=== PATIENT | female | born 1960 | race Caucasian/White ===

== ENCOUNTER 2022-07-05 19:00 | Observation (INO) | payer OTHER ==
[2022-07-05 19:30] VITALS: BMI 28.1
[2022-07-05 21:20] LABS: BASO % 1.2 % (0-2.0); EOS % 2.8 % (0-4.5); HEMOGLOBIN 13.9 GM/dL (10.7-15.3); LYMPH % 32.2 % (8-40); MCH 31.6 pg (25.7-33.7); MCHC 33.9 g/dl (32.0-36.0); MEAN CELL VOLUME 93.1 fl (80-96); MEAN PLT VOLUME 8.4 fl (7.5-11.1); MONO % 5.9 % (3.8-10.2); NEUT % 57.9 % (42.8-82.8); PLATELET COUNT 382 10^3/uL (134-434); RDW 13.7 % (11.6-15.6); WHITE BLOOD COUNT 12.5 K/mm3 (4.0-10.0)
[2022-07-05 21:27] LABS: INR 1.06 (0.83-1.09); PROTHROMBIN TIME (PATIENT) 12.3 SEC (9.7-13.0)
[2022-07-05 21:44] LABS: CALCIUM 9.4 mg/dL (8.5-10.1)
[2022-07-05 21:45] LABS: ALBUMIN 4.1 g/dl (3.4-5.0); BLOOD UREA NITROGEN 11.4 mg/dL (7-18)
[2022-07-05 21:48] LABS: CREATININE 0.6 mg/dL (0.55-1.3)
[2022-07-05 21:49] LABS: BILIRUBIN,TOTAL 0.3 mg/dL (0.2-1); TOT PROT 8.1 g/dl (6.4-8.2)
[2022-07-05 22:13] LABS: EPI CELLS 12 /uL (0-25.1); HYALINE CASTS 1 /uL (0-3.1); PH,URINE 6.5 (5.0-8.0); URINE APPEARANCE CLEAR; URINE BACTERIA 92 /uL (0-1359); URINE BILIRUBIN NEGATIVE (NEGATIVE); URINE COLOR YELLOW; URINE GLUCOSE (UA) NEGATIVE (NEGATIVE); URINE KETONE NEGATIVE (NEGATIVE); URINE LEUK ESTERASE TRACE (NEGATIVE); URINE NITRITE NEGATIVE (NEGATIVE); URINE PROTEIN 1+ (NEGATIVE); URINE RBC 85 /uL (0-23.9); URINE UROBILINOGEN 0.2 mg/dL (0.2-1.0); URINE WBC 79 /uL (0-25.8)
[2022-07-06] MEDS ORDERED: CEFTRIAXONE 1 GM in DEXTROSE 5%-WATER - 50 ML IVPB ONE (01:47)
[2022-07-06] MEDS ORDERED: CEFTRIAXONE 1 GM/50 ML BAG ONE (01:59)
[2022-07-06] MEDS: SODIUM CHLORIDE 1,000 ML IV SCH ×2 (02:06→07:46)
[2022-07-06] MEDS: POLYETHYLENE GLYCOL (HEALTHYLAX) 3350 17 GM PACKET PO SCH ×3 (06:00→22:02)
[2022-07-06] MEDS ORDERED: MAGNESIUM SULF 50% (8.12 MEQ/2 ML-1 GM VIAL) IVPB ONE ×2 (11:30→11:45)
[2022-07-06 12:00] LABS: HEMATOCRIT 37.4 % (32.4-45.2); MCH 32.3 pg (25.7-33.7); MCHC 34.8 g/dl (32.0-36.0); MEAN CELL VOLUME 92.7 fl (80-96); MEAN PLT VOLUME 8.1 fl (7.5-11.1); PLATELET COUNT 370 10^3/uL (134-434); RBC 4.04 M/mm3 (3.60-5.2); RDW 13.7 % (11.6-15.6); WHITE BLOOD COUNT 12.9 K/mm3 (4.0-10.0)
[2022-07-06 12:24] LABS: BLOOD UREA NITROGEN 10.4 mg/dL (7-18); CALCIUM 8.7 mg/dL (8.5-10.1); MAGNESIUM 2.2 mg/dL (1.8-2.4)
[2022-07-06 12:25] LABS: ALBUMIN 3.6 g/dl (3.4-5.0)
[2022-07-06 12:27] LABS: CREATININE 0.5 mg/dL (0.55-1.3)
[2022-07-06 12:29] LABS: BILIRUBIN,TOTAL 0.4 mg/dL (0.2-1); TOT PROT 7.2 g/dl (6.4-8.2)
[2022-07-06 12:30] LABS: PHOSPHOROUS 3.6 mg/dL (2.5-4.9)
[2022-07-06 23:38] VITALS: TEMP 98.2
[2022-07-07] MEDS: SODIUM CHLORIDE 1,000 ML IV SCH (01:55)
[2022-07-07] MEDS: POLYETHYLENE GLYCOL (HEALTHYLAX) 3350 17 GM PACKET PO SCH ×3 (05:26→16:14)
[2022-07-07 06:44] VITALS: BP 113/56; RESP 18
[2022-07-07 09:37] LABS: BASO % 0.8 % (0-2.0); EOS % 5.8 % (0-4.5); HEMOGLOBIN 13.4 GM/dL (10.7-15.3); LYMPH % 35.5 % (8-40); MCH 31.6 pg (25.7-33.7); MCHC 33.5 g/dl (32.0-36.0); MEAN CELL VOLUME 94.1 fl (80-96); MEAN PLT VOLUME 8.3 fl (7.5-11.1); MONO % 4.9 % (3.8-10.2); PLATELET COUNT 376 10^3/uL (134-434); RBC 4.25 M/mm3 (3.60-5.2); RDW 14.2 % (11.6-15.6); WHITE BLOOD COUNT 10.3 K/mm3 (4.0-10.0)
[2022-07-07] MEDS ORDERED: SOLIFENACIN SUCCINATE 5 MG TAB PO SCH (10:00)
[2022-07-07] MEDS ORDERED: CEFTRIAXONE 1 GM in DEXTROSE 5%-WATER - 50 ML IVPB SCH (10:00)
[2022-07-07 10:01] LABS: ALBUMIN 3.6 g/dl (3.4-5.0); BLOOD UREA NITROGEN 10.5 mg/dL (7-18)
[2022-07-07 10:02] LABS: CALCIUM 9.2 mg/dL (8.5-10.1); MAGNESIUM 2.4 mg/dL (1.8-2.4)
[2022-07-07 10:04] LABS: CREATININE 0.5 mg/dL (0.55-1.3); PHOSPHOROUS 3.7 mg/dL (2.5-4.9)
[2022-07-07 10:06] LABS: BILIRUBIN,TOTAL 0.6 mg/dL (0.2-1); TOT PROT 7.1 g/dl (6.4-8.2)
[2022-07-07] MEDS ORDERED: NICOTINE 7 MG/24 HOURS TOPICAL PATCH TD SCH (12:00)
[2022-07-07] MEDS ORDERED: LORATADINE 10 MG TABLET PO SCH (13:30)
[2022-07-07 16:17] VITALS: PULSE 67
== END 2022-07-07 17:30 | disposition home or self-care (01) ==
LOC: JER 19:00 → JERBED 07-06 01:36 → UNDOADMOB 07-06 01:36 → INTOOBSV 07-06 01:36 → JERBED 07-06 02:45 → J5S 07-06 02:45 → JERBED 07-07 13:16 → J5S 07-07 13:16
PROVIDERS: ADMIT Internal Medicine; ATTEND Internal Medicine
PROC: 3E03329 Introduction of Other Anti-infective into Peripheral Vein, Percutaneous Approach (ICD-10-PCS; principal; 2022-07-07)
PROC: 3E033GC Introduction of Other Therapeutic Substance into Peripheral Vein, Percutaneous Approach (ICD-10-PCS; 2022-07-07)
PROC: 3E0337Z Introduction of Electrolytic and Water Balance Substance into Peripheral Vein, Percutaneous Approach (ICD-10-PCS; 2022-07-07)
DX: N39.0 Urinary tract infection, site not specified (principal); R31.0 Gross hematuria; D49.4 Neoplasm of unspecified behavior of bladder; M48.00 Spinal stenosis, site unspecified; K59.09 Other constipation; F17.210 Nicotine dependence, cigarettes, uncomplicated; M54.40 Lumbago with sciatica, unspecified side
CPT/HCPCS: 36415; 74177-TC; 80053; 81003; 83036; 83735; 84100; 84439; 84443; 85025; 85027; 85610; 85730; 87086; 93005; 93010; 96361; 96365; 96375; 99285-25; C9803-CS; G0378; U0003; U0005

== ENCOUNTER 2022-07-17 08:02 | Inpatient (IN) | payer OTHER ==
[2022-07-17] MEDS ORDERED: ACETAMINOPHEN 1000 MG/100 ML BAG IVPB ONE (08:50)
[2022-07-17] MEDS ORDERED: SODIUM CHLORIDE 0.9% 500 ML INFUS.BAG IV ONE (08:50)
[2022-07-17] MEDS ORDERED: ACETAMINOPHEN INJECTION 100 ML IVPB ONE (09:34)
[2022-07-17 09:44] LABS: BASO % 0.8 % (0-2.0); EOS % 0.5 % (0-4.5); HEMATOCRIT 38.7 % (32.4-45.2); HEMOGLOBIN 13.3 GM/dL (10.7-15.3); LYMPH % 17.3 % (8-40); MCH 31.6 pg (25.7-33.7); MCHC 34.3 g/dl (32.0-36.0); MEAN PLT VOLUME 8.3 fl (7.5-11.1); MONO % 5.6 % (3.8-10.2); NEUT % 75.8 % (42.8-82.8); PLATELET COUNT 409 10^3/uL (134-434); RBC 4.21 M/mm3 (3.60-5.2); RDW 13.9 % (11.6-15.6); WHITE BLOOD COUNT 13.7 K/mm3 (4.0-10.0)
[2022-07-17 10:12] LABS: ALBUMIN 3.9 g/dl (3.4-5.0); CALCIUM 9.2 mg/dL (8.5-10.1)
[2022-07-17 10:17] LABS: BILIRUBIN,TOTAL 0.4 mg/dL (0.2-1); TOT PROT 7.6 g/dl (6.4-8.2)
[2022-07-17 10:37] LABS: BLOOD UREA NITROGEN 10.6 mg/dL (7-18); CREATININE 0.6 mg/dL (0.55-1.3)
[2022-07-17 11:24] LABS: EPI CELLS 14 /uL (0-25.1); HYALINE CASTS 6 /uL (0-3.1); PH,URINE 7.5 (5.0-8.0); URINE APPEARANCE TURBID; URINE BACTERIA 396 /uL (0-1359); URINE BILIRUBIN NEGATIVE (NEGATIVE); URINE COLOR YELLOW; URINE GLUCOSE (UA) NEGATIVE (NEGATIVE); URINE KETONE NEGATIVE (NEGATIVE); URINE LEUK ESTERASE 1+ (NEGATIVE); URINE NITRITE NEGATIVE (NEGATIVE); URINE PROTEIN 2+ (NEGATIVE); URINE RBC 128 /uL (0-23.9); URINE UROBILINOGEN 0.2 mg/dL (0.2-1.0); URINE WBC 456 /uL (0-25.8)
[2022-07-17] MEDS ORDERED: CEFTRIAXONE 1 GM/50 ML BAG ONE (11:35)
[2022-07-17] MEDS ORDERED: morphine CARPU-JECT 2 MG/1 ML DISP.SYRIN IVPUSH ONE (11:56)
[2022-07-17] MEDS ORDERED: morphine SULFATE 4 MG/ML VIAL ONE (17:02)
[2022-07-17] MEDS ORDERED: morphine CARPU-JECT 4 MG/1 ML DISP.SYRIN IVPUSH ONE (17:02)
[2022-07-17] MEDS ORDERED: OXYBUTYNIN CHLORIDE 5 MG TABLET PO ONE (17:16)
[2022-07-17] MEDS ORDERED: diazePAM CARPU-JECT 10 MG/2 ML DISP.SYRIN IVPUSH ONE (17:51)
[2022-07-17] MEDS ORDERED: DICYCLOMINE HCL 20 MG TABLET PO ONE (17:52)
[2022-07-17] MEDS ORDERED: diazePAM CARPU-JECT 10 MG/2 ML DISP.SYRIN ONE ×2 (17:57→20:51)
[2022-07-17] MEDS ORDERED: morphine CARPU-JECT 4 MG/1 ML DISP.SYRIN IVPUSH PRN (20:49)
[2022-07-17] MEDS ORDERED: DICYCLOMINE HCL 10 MG CAPSULE ONE (20:51)
[2022-07-17] MEDS ORDERED: SODIUM CHLORIDE 1,000 ML IV SCH (21:00)
[2022-07-17] MEDS ORDERED: ACETAMINOPHEN 1000 MG/100 ML BAG IVPB SCH (21:00)
[2022-07-17] MEDS ORDERED: CEFTRIAXONE 1 GM in DEXTROSE 5%-WATER - 50 ML IVPB SCH (21:15)
[2022-07-18 01:12] VITALS: BMI 28.5
[2022-07-18] MEDS ORDERED: SODIUM CHLORIDE 1,000 ML IV STA ×2 (06:37)
[2022-07-18] MEDS: SODIUM CHLORIDE 1,000 ML IV SCH ×2 (08:37→20:14)
[2022-07-18] MEDS: SOLIFENACIN SUCCINATE 5 MG TAB PO SCH (09:14)
[2022-07-18 10:04] LABS: BASO % 0.6 % (0-2.0); EOS % 3.8 % (0-4.5); HEMATOCRIT 36.6 % (32.4-45.2); HEMOGLOBIN 12.2 GM/dL (10.7-15.3); LYMPH % 27.3 % (8-40); MCH 31.5 pg (25.7-33.7); MCHC 33.4 g/dl (32.0-36.0); MEAN CELL VOLUME 94.5 fl (80-96); MEAN PLT VOLUME 8.8 fl (7.5-11.1); MONO % 5.8 % (3.8-10.2); NEUT % 62.5 % (42.8-82.8); PLATELET COUNT 365 10^3/uL (134-434); RBC 3.88 M/mm3 (3.60-5.2); WHITE BLOOD COUNT 11.8 K/mm3 (4.0-10.0)
[2022-07-18 10:20] LABS: BLOOD UREA NITROGEN 7.2 mg/dL (7-18)
[2022-07-18 10:22] LABS: CREATININE 0.4 mg/dL (0.55-1.3)
[2022-07-18 10:23] LABS: PHOSPHOROUS 3.2 mg/dL (2.5-4.9)
[2022-07-18 10:24] LABS: BILIRUBIN,TOTAL 0.4 mg/dL (0.2-1)
[2022-07-18 10:26] LABS: ALBUMIN 3.1 g/dl (3.4-5.0); CALCIUM 7.8 mg/dL (8.5-10.1); TOT PROT 5.4 g/dl (6.4-8.2)
[2022-07-18] MEDS: ACETAMINOPHEN 1000 MG/100 ML BAG IVPB PRN ×2 (11:40→19:58)
[2022-07-18] MEDS: POLYETHYLENE GLYCOL (HEALTHYLAX) 3350 17 GM PACKET PO PRN (11:45)
[2022-07-18] MEDS ORDERED: CEFTRIAXONE 1 GM in DEXTROSE 5%-WATER - 50 ML IVPB SCH (12:00)
[2022-07-18] MEDS ORDERED: ONDANSETRON 4 MG/2 ML VIAL IVPUSH PRN (13:58)
[2022-07-19] MEDS: SODIUM CHLORIDE 1,000 ML IV SCH ×2 (07:43→19:25)
[2022-07-19] MEDS ORDERED: MEROPENEM 1 GM in DEXTROSE 5%-WATER 100 ML IVPB SCH (10:00)
[2022-07-19 10:12] LABS: BASO % 0.6 % (0-2.0); EOS % 4.6 % (0-4.5); HEMATOCRIT 36.6 % (32.4-45.2); HEMOGLOBIN 12.4 GM/dL (10.7-15.3); LYMPH % 25.8 % (8-40); MCH 31.9 pg (25.7-33.7); MCHC 33.7 g/dl (32.0-36.0); MEAN CELL VOLUME 94.5 fl (80-96); MEAN PLT VOLUME 8.8 fl (7.5-11.1); MONO % 5.1 % (3.8-10.2); NEUT % 63.9 % (42.8-82.8); PLATELET COUNT 352 10^3/uL (134-434); RBC 3.88 M/mm3 (3.60-5.2); RDW 14.3 % (11.6-15.6); WHITE BLOOD COUNT 12.2 K/mm3 (4.0-10.0)
[2022-07-19] MEDS: SOLIFENACIN SUCCINATE 5 MG TAB PO SCH (10:17)
[2022-07-19 10:26] LABS: CALCIUM 8.2 mg/dL (8.5-10.1)
[2022-07-19 10:27] LABS: BLOOD UREA NITROGEN 5.2 mg/dL (7-18)
[2022-07-19 10:30] LABS: CREATININE 0.4 mg/dL (0.55-1.3)
[2022-07-19] MEDS ORDERED: BISACODYL 5 MG TABLET.DR (FP) PO ONE (14:53)
[2022-07-19] MEDS: ERTAPENEM SODIUM 1 GM in SODIUM CHLORIDE 50 ML IVPB SCH (15:35)
[2022-07-20 08:00] LABS: BLOOD UREA NITROGEN 7.4 mg/dL (7-18); CALCIUM 8.1 mg/dL (8.5-10.1)
[2022-07-20 08:04] LABS: CREATININE 0.5 mg/dL (0.55-1.3)
[2022-07-20 08:10] LABS: BASO % 0.5 % (0-2.0); EOS % 5.9 % (0-4.5); HEMATOCRIT 36.4 % (32.4-45.2); HEMOGLOBIN 12.3 GM/dL (10.7-15.3); LYMPH % 30.4 % (8-40); MCH 31.9 pg (25.7-33.7); MCHC 33.9 g/dl (32.0-36.0); MEAN CELL VOLUME 93.9 fl (80-96); MEAN PLT VOLUME 8.8 fl (7.5-11.1); MONO % 6.7 % (3.8-10.2); NEUT % 56.5 % (42.8-82.8); PLATELET COUNT 337 10^3/uL (134-434); RBC 3.87 M/mm3 (3.60-5.2); WHITE BLOOD COUNT 10.3 K/mm3 (4.0-10.0)
[2022-07-20] MEDS: SODIUM CHLORIDE 1,000 ML IV SCH ×2 (09:19→17:34)
[2022-07-20] MEDS ORDERED: MEROPENEM 1 GM in DEXTROSE 5%-WATER 100 ML IVPB SCH (10:00)
[2022-07-20] MEDS: ERTAPENEM SODIUM 1 GM in SODIUM CHLORIDE 50 ML IVPB SCH (10:34)
[2022-07-20] MEDS: SOLIFENACIN SUCCINATE 5 MG TAB PO SCH (10:40)
[2022-07-20] MEDS ORDERED: MINERAL OIL ENEMA 133 ML ENEMA RC ONE (14:29)
[2022-07-21] MEDS: SODIUM CHLORIDE 1,000 ML IV SCH ×2 (03:27→14:34)
[2022-07-21] MEDS: ERTAPENEM SODIUM 1 GM in SODIUM CHLORIDE 50 ML IVPB SCH (09:21)
[2022-07-21] MEDS: SOLIFENACIN SUCCINATE 5 MG TAB PO SCH (09:21)
[2022-07-21] MEDS: POLYETHYLENE GLYCOL (HEALTHYLAX) 3350 17 GM PACKET PO PRN (09:45)
[2022-07-21] MEDS ORDERED: POLYETHYLENE GLYCOL (HEALTHYLAX) 3350 17 GM PACKET PO ONE (11:45)
[2022-07-22] MEDS ORDERED: HYDROCORTISONE 1% TOPICAL CREAM 30 GM TUBE TP PRN (01:15)
[2022-07-22 08:54] LABS: BASO % 0.5 % (0-2.0); EOS % 5.9 % (0-4.5); HEMATOCRIT 39.6 % (32.4-45.2); HEMOGLOBIN 13.3 GM/dL (10.7-15.3); LYMPH % 34.5 % (8-40); MCH 31.5 pg (25.7-33.7); MCHC 33.6 g/dl (32.0-36.0); MEAN CELL VOLUME 93.7 fl (80-96); MEAN PLT VOLUME 8.7 fl (7.5-11.1); MONO % 5.4 % (3.8-10.2); NEUT % 53.7 % (42.8-82.8); PLATELET COUNT 378 10^3/uL (134-434); RBC 4.23 M/mm3 (3.60-5.2); RDW 14.1 % (11.6-15.6)
[2022-07-22 09:17] LABS: CALCIUM 8.9 mg/dL (8.5-10.1)
[2022-07-22 09:18] LABS: BLOOD UREA NITROGEN 6.5 mg/dL (7-18)
[2022-07-22 09:21] LABS: CREATININE 0.5 mg/dL (0.55-1.3)
[2022-07-22] MEDS: SOLIFENACIN SUCCINATE 5 MG TAB PO SCH (09:47)
[2022-07-22] MEDS: ERTAPENEM SODIUM 1 GM in SODIUM CHLORIDE 50 ML IVPB SCH (09:48)
[2022-07-22] MEDS: SODIUM CHLORIDE 1,000 ML IV SCH ×2 (16:56→23:02)
[2022-07-22] MEDS: HEPARIN NA (PORCINE) 5,000 UNITS/ML 1ML VIAL SQ SCH ×2 (17:06→21:05)
[2022-07-23] MEDS: SODIUM CHLORIDE 1,000 ML IV SCH (06:33)
[2022-07-23] MEDS: SOLIFENACIN SUCCINATE 5 MG TAB PO SCH (09:11)
[2022-07-23] MEDS: ERTAPENEM SODIUM 1 GM in SODIUM CHLORIDE 50 ML IVPB SCH (09:11)
[2022-07-23] MEDS: HEPARIN NA (PORCINE) 5,000 UNITS/ML 1ML VIAL SQ SCH ×2 (09:12→21:29)
[2022-07-24] MEDS: HEPARIN NA (PORCINE) 5,000 UNITS/ML 1ML VIAL SQ SCH ×2 (09:29→21:08)
[2022-07-24] MEDS: SOLIFENACIN SUCCINATE 5 MG TAB PO SCH (09:29)
[2022-07-24] MEDS: ERTAPENEM SODIUM 1 GM in SODIUM CHLORIDE 50 ML IVPB SCH (09:29)
[2022-07-24] MEDS: SODIUM CHLORIDE 1,000 ML IV SCH (09:30)
[2022-07-24 22:36] VITALS: RESP 20
[2022-07-25 08:00] VITALS: BP 106/46; PULSE 53; TEMP 97.8
[2022-07-25] MEDS: SOLIFENACIN SUCCINATE 5 MG TAB PO SCH (09:42)
[2022-07-25] MEDS: HEPARIN NA (PORCINE) 5,000 UNITS/ML 1ML VIAL SQ SCH (09:42)
[2022-07-25] MEDS: ERTAPENEM SODIUM 1 GM in SODIUM CHLORIDE 50 ML IVPB SCH (09:42)
== END 2022-07-25 13:15 | disposition home or self-care (01) | DRG 463 ==
LOC: JER 08:02 → JERBED 18:17 → J8W 07-18 00:54
PROVIDERS: ADMIT Internal Medicine; ATTEND Nurse Practitioner Family
DX: N39.0 Urinary tract infection, site not specified (principal); N13.30 Unspecified hydronephrosis; R33.8 Other retention of urine; K59.00 Constipation, unspecified; R31.9 Hematuria, unspecified; N32.89 Other specified disorders of bladder; B96.29 Other Escherichia coli [E. coli] as the cause of diseases classified elsewhere; Z16.12 Extended spectrum beta lactamase (ESBL) resistance
CPT/HCPCS: 0241U-QW; 36415; 74177-TC; 80048; 80053; 81003; 83605; 83690; 83735; 84100; 85025; 87086; 87186; 93005; 93010; 99285-25; J1644; Q9967

== ENCOUNTER 2022-07-31 03:56 | Day surgery (SDC) | payer OTHER ==
[2022-07-26 15:32] VITALS: BMI 28.1
[2022-07-31] MEDS ORDERED: MIDAZOLAM HCL 2 MG/2 ML SINGLE DOSE VIAL ONE (10:16)
[2022-07-31] MEDS ORDERED: PROPOFOL 20 ML ONE (10:16)
[2022-07-31] MEDS ORDERED: ONDANSETRON 4 MG/2 ML VIAL ONE ×2 (10:38→12:02)
[2022-07-31] MEDS ORDERED: ceFAZolin SODIUM 1 GM VIAL ONE (10:38)
[2022-07-31] MEDS ORDERED: GENTAMICIN SO4 80 MG/2 ML VIAL ONE (10:38)
[2022-07-31] MEDS ORDERED: DEXAMETHASONE SOD PHOSPHATE 4 MG/1 ML VIAL ONE (10:38)
[2022-07-31] MEDS ORDERED: ceFAZolin SODIUM 1 GM VIAL IVPB ONE (10:40)
[2022-07-31] MEDS ORDERED: ONDANSETRON 4 MG/2 ML VIAL IVPUSH PRN (12:16)
[2022-07-31] MEDS ORDERED: oxyCODONE HCL 5 MG TABLET PO PRN (12:16)
[2022-07-31] MEDS ORDERED: LACTATED RINGERS SOLUTION 1,000 ML IV SCH (12:30)
[2022-07-31 14:25] VITALS: RESP 20
[2022-07-31 15:43] VITALS: BP 123/75; PULSE 94; TEMP 97.8
== END 2022-07-31 15:56 | disposition home or self-care (01) ==
LOC: JASU-SURG 03:56
PROVIDERS: ATTEND Urology
PROC: BT1FYZZ Fluoroscopy of Left Kidney, Ureter and Bladder using Other Contrast (ICD-10-PCS; 2022-07-31)
PROC: 0TBB8ZZ Excision of Bladder, Via Natural or Artificial Opening Endoscopic (ICD-10-PCS; principal; 2022-07-31 10:00)
DX: C67.8 Malignant neoplasm of overlapping sites of bladder (principal); N13.5 Crossing vessel and stricture of ureter without hydronephrosis
CPT/HCPCS: 76000-TC-FY; 88307-TC; 94760